=== PATIENT | female | born 1990 | race Caucasian/White ===

== ENCOUNTER 2017-05-26 21:03 | Emergency (ER) | payer MEDICAID, SELFPAY ==
[2017-05-26 21:04] VITALS: BP 151/88; PULSE 106; RESP 20; TEMP 36.6; O2SAT 97; BMI 37.7
--- NOTE | 2017-05-26 21:53 | ED.DCSUM_ITS ---
- ER Visit Summary Date of Service: 05/26/17 Chief Complaint: Vaginal bleeding History of Present Illness: The patient is a 26 F at approximately 4 weeks. Blood type B+. Presents with vaginal spotting that started tonight. No urinary symptoms. No abdominal pain. No back pain. No fevers. Physical Examination: Blood pressure 151/88. Heart rate 106. Afebrile. Nontoxic and in no acute distress. Abdomen soft and nontender. Test Results: We will check a pelvic exam, urinalysis, and hCG quant. Emergency Department Course and Treatment: Quant was 2. Urinalysis showed signs of likely contamination especially given her lack of symptoms. Will not treat at this time. Pelvic exam was not done as the patient was not and did not have discharge, pain, or any other concerning symptoms. Patient will follow up with her HAND DEVELOPER for any related issues. Return for any new or worsening problems. Treatment Plan: As above Disposition: Discharged Impression: 1. Vaginal bleeding This note was generated with [employer] dictation software. It may contain incorrect words, spelling, and punctuation that were not noted in review of the chart prior to signing ED Disposition - Plan for ED Patient: Chief Complaint: Vag Bld, Preg Referrals: Genesis Macedo MD [Primary Care Provider] -
[2017-05-26 22:26] LABS: Mucous, Urine 0 SEEN /hpf (<or=2+)
[2017-05-26 22:29] LABS: hCG Titer Quant., Serum 2 mIU/mL (<9 non-preg)
[2017-05-26 22:31] LABS: Color, Urine Red (Yellow); Glucose, Dipstick Normal (Normal); Ketone-Dipstick Negative (Negative); Leukocyte Esterase-Dipstick 500 /ul (Negative); Nitrite-Dipstick Negative (Negative); Occult Blood-Urine 250 /ul (Negative); Protein-Dipstick 100 mg/dl (Negative); Urine Bilirubin Dipstick Negative (Negative); Urine Clarity Sl. Cloudy (Clear); Urine Urobilinogen Normal (Normal)
[2017-05-26 22:38] LABS: Red Blood Cells-Urine > 100 SEEN /hpf (0-5); White Blood Cells 50-100 SEEN /hpf (0-5)
[2017-05-26 22:39] LABS: Bacteria 2+ /hpf (None Seen); Squamous Epithelial Cells - UA 10-25 SEEN /hpf (5-10)
--- NOTE | 2017-05-26 22:46 | ED.DEP ---
ED Disposition - Plan for ED Patient: Chief Complaint: Vag Bld, Preg Instructions: ED Bleed Irregular Vaginal Referrals: Genesis Macedo MD [Primary Care Provider] -
[2017-05-26 22:54] VITALS: BP 145/80; PULSE 87; RESP 14; O2SAT 98
--- NOTE | 2017-05-26 22:54 | ED.RN ---
pt given written and verbal discharge instructions by this rn. pt verbalizes understanding. pt tearful. this rn offers pt emotional support and tissues. pt iv d/c and covered with 2x2 gauze dressing and paper tap. pt ambulatory home with .
== END 2017-05-26 22:56 | disposition home or self-care (01) ==
PROVIDERS: Emergency Provider Emergency Medicine; Family Provider Family Medicine; PCP Family Medicine
DX: O46.91 Antepartum hemorrhage, unspecified, first trimester (principal); R19.7 Diarrhea, unspecified; Z3A.01 Less than 8 weeks gestation of pregnancy
CPT/HCPCS: 81001; 84702; 99283; A4216

== ENCOUNTER 2019-01-01 07:00 | Inpatient (IN) | payer MEDICAID, SELFPAY ==
[2019-01-01] VITALS (15 sets, daily range): BP systolic 101–129; BP diastolic 39–66; PULSE 82–107; RESP 15–18; TEMP 36.1–36.5; O2SAT 91–99; BMI 43.6
[2019-01-01] MEDS: Lactated Ringers 1,000 ML 200 ML IV (08:00)
--- NOTE | 2019-01-01 08:11 | PCM.HP.OB ---
History Date of Admission: 01/01/19 Final SALVADOR: 01/07/19 Gestational age: 39 Weeks and 1 Days History of this : This is a 28 year-old, @ 39.1 weeks- here for elective IOL- Maternal obesity, h/o macrosomia Allergies amoxicillin Allergy (Verified 01/01/19 07:50) Hives azithromycin [From Zithromax] Allergy (Verified 01/01/19 07:50) Rash latex Allergy (Verified 01/01/19 07:50) Hives nitrous oxide Allergy (Verified 01/01/19 07:50) Shortness of breath Intensifies pain Penicillins Allergy (Verified 01/01/19 07:50) Unknown Home Medications: Home Medications Sertraline HCl [Zoloft] 50 mg PO DAILY 05/26/17 Famotidine [Pepcid] 20 mg PO BID 01/01/19 Pnv No.95/Ferrous Fum/Folic AC [ Caplet] 1 ea PO DAILY 01/01/19 Smoking Status: Never smoker Alcohol: None Number of Fetus(es): 1 NST - FHR Rate Baby A Baseline: 150 Variability:: Moderate Accelerations:: 15 x 15 Decelerations:: None NST Reactive:: Yes FHR Category:: Category I Uterine Activity:: irregular History Past Pregnancies: Past Pregnancies Delivery Date Name GA/ Weeks Outcome Route Wt Sex Labor Length Anesthesia Delivery Location Provider FOB Labs: GBS negative, A+ Expected Delivery Method: Spontaneous Vaginal Review of Systems Constitutional: Denies: Anorexia Cardiovascular: Denies: Chest Pain Gastrointestinal: Denies: Abdominal Pain Physical Exam General: Alert, Oriented x3 Abdomen: Soft, Non Tender, Gravid Neurological: Cranial nerves II-XII grossly intact THERAPY SITE COORDINATOR: Normal external genitalia Estimated gestational size: Appropriate for gestational size Presentation: Cephalic Cervix Dilation (cm): 4 Station: -2 Effacement (%): 80 Assessment/Plan This is a 28 year-old, @ 39.1 wks, elective IOL - Maternal obesity and h/o Macrosomic infant 1) admit to L&D 2) Monitor FHR/TOCO 3) Anticipate 4) Epidural if requested for pain
[2019-01-01] MEDS: Oxytocin 30 units/NS 500 ml 30 UNITS/500 ML IV.SOLN IV (08:13)
[2019-01-01 08:32] LABS: Absolute Lymphocyte Count 1.78 X10^3/uL (0.83-4.51); Absolute Neutrophil Count 8.5 X10^3/uL (2.0-7.7); Basophil# 0.03 X10^3/uL; Basophil% 0.3 % (0-1); Eosinophil# 0.06 X10^3/uL; Eosinophils% 0.5 % (0-5); Hematocrit 37.8 % (37-47); Lymphocyte # 1.78 X10^3/ul (4.0); Lymphocyte % 16.1 % (19-41); Mean Corp Hgb Conc 31.7 g/dL (32-36); Mean Corpuscular Hgb 28.3 pg (27.0-32.0); Mean Corpuscular Volume 89.2 fL (81-99); Mean Platelet Vol. 9.4 fl (6.2-12.0); Monocyte# 0.66 X10^3/uL; NRBC Flagged by Analyzer 0 % (0-5); Neutrophil # 8.45 X10^3/uL (2.7-7.7); Neutrophil % 76.6 % (47-70); Platelet Count 201 K/mm3 (150-450); RBC Distribution Width CV 16.5 % (11.6-14.6); RBC Distribution Width SD 53.3 fl (35.1-43.9); Red Blood Count 4.24 M/mm3 (4.2-5.4)
[2019-01-01] MEDS: Lactated Ringers 500 ML 999 ML IV ×2 (08:50→10:32)
[2019-01-01] MEDS: fentaNYL-bupivacaine (epidural) 100 ML BAG EPIDURAL (11:21)
[2019-01-01] MEDS: Oxytocin 30 units/NS 500 ml 30 UNITS/500 ML IV.SOLN 334 UNITS IV (12:58)
--- NOTE | 2019-01-01 14:25 | PCM.OPRPT ---
Vaginal Delivery Maternal Presentation: Elective Induction Method of Induction: Pitocin, Amniotomy Amniotic Membrane Rupture Type: Artificial Amniotic Fluid Description: Clear Final SALVADOR: 01/07/19 Final SALVADOR Source: LMP Gestational age: 39 Weeks and 1 Days Date of Procedure: 01/01/19 Pre-Operative Diagnosis: term gestation, elective IOL Post-Operative Diagnosis: live female infant, 4th degre vaginal laceration, macrosomic infant Surgery/ Procedure Performed: Spontaneous Vaginal Delivery Type of Anesthesia: Epidural, - - spinal for repair of 4th degree laceration. Description of Procedure: Pt progressed from 4 cm to complete with strong urge to push as the epidural was not working well. head delivered loose nuchal appreciated it was reduced prior to delivery. With gentle downward traction and patient with good maternal pushing efforts delivered a live female infant. 3 of placenta the vagina was evaluated and fourth degree vaginal laceration was appreciated. Patient was counseled on the laceration and was prepped for the operating room for better utilization as well as spinal anesthesia as her epidural was inadequate at this time. Patient was then taken to the operating room and fourth degree vaginal laceration was repaired the rectal mucosa was repaired using a continuous 3-0 Vicryl suture. The sphincter was then identified laterally and it was repaired using a 3-0 Vicryl suture in a continuous fashion. The external anal sphincter was then identified grasped with 2 Allis clamps and the severed ends and it was repaired in a interrupted overlapping fashion using 5 interrupted sutures of 3-0 vicryl. These were then tied and good support was appreciated. The remaining vaginal laceration was repaired using #2 Vicryl suture in a running locking fashion. And the perineum was reapproximated using 3-0 Rapide in a running fashion. Rectal exam was performed good support was appreciated no sutures were palpated through the rectum. The procedure well she did receive Ancef 3 g in the operating room and will further dose in the morning as well as a CBC. Will remain on stool softeners and Toradol every 6 hours. Patient was given Duramorph in her spinal for pain control. Presentation: Vertex Placental Delivery Description: Spontaneous Placenta Disposition: [facility] Cord Vessel Description: 3 Vessels Nuchal Cord Compression: Without compression Cord Gases drawn per routine: ABG, VBG Cord Entanglement: Around neck x 1, loose Drain: Fan to straight drain Estimated Blood Loss: 400 Infant A gender: Female (1 minute): 8 (5 minute): 9 Episiotomy Description: None Laceration: Perineal Extension/lac, Vaginal Extension/lac, 2nd degree, 4th Degree Medications given after delivery: IV Pitocin Complications: None
[2019-01-01] MEDS: Nalbuphine 10 MG/ML Ampul 5 MG IV (15:43)
[2019-01-01] MEDS: Lactated Ringers 1,000 ML 50 ML IV (17:02)
[2019-01-01] MEDS: Senna/Docusate Sodium 1 Tablet PO (20:43)
[2019-01-01] MEDS: Ketorolac 30 MG/ML Syringe IV (20:43)
[2019-01-02] VITALS (12 sets, daily range): BP systolic 113–133; BP diastolic 52–67; PULSE 79–100; RESP 16–18; TEMP 36–36.7; O2SAT 95–100
[2019-01-02] MEDS: Ketorolac 30 MG/ML Syringe IV ×3 (02:37→14:35)
[2019-01-02] MEDS: 0.9% Saline Lock 10 ML Syringe IV ×4 (02:38→14:37)
[2019-01-02] MEDS: Nalbuphine 10 MG/ML Ampul 5 MG IV ×2 (02:50→11:09)
[2019-01-02 06:32] LABS: Hematocrit 31.9 % (37-47); Hemoglobin 10.2 g/dL (12.0-15.0); Mean Corpuscular Hgb 28.7 pg (27.0-32.0); Mean Corpuscular Volume 89.6 fL (81-99); Mean Platelet Vol. 9.5 fl (6.2-12.0); Platelet Count 190 K/mm3 (150-450); RBC Distribution Width CV 16.7 % (11.6-14.6); RBC Distribution Width SD 54.3 fl (35.1-43.9); Red Blood Count 3.56 M/mm3 (4.2-5.4); White Blood Count 11.7 K/mm3 (4.4-11.0)
--- NOTE | 2019-01-02 09:43 | PCM.PN.OB ---
Subjective: Seen at bedside, doing well. Patient reports good pain control at this timeThe catheter was just removed. Patient denies any significant rectal pain when moving in the bed. No bowel movement at this time. Bottlefeeding. . - Physical Exam Vitals/I&O's: Vital Signs Temp Pulse Resp BP Pulse Ox 97.0 F L 87 16 118/57 L 97 01/02/19 07:53 01/02/19 07:53 01/02/19 07:53 01/02/19 07:53 01/02/19 07:53 Oxygen Delivery Method Room Air Weight: 118.841 kg Body Mass Index (BMI) 43.6 Intake and Output for Last 24 Hours 12/31/18 01/01/19 01/02/19 23:59 23:59 23:59 Intake Total 2372.87 / 2372.87 115 / 115 Output Total 450 / 450 575 / 575 Balance 1922.87 / 1922.87 -460 / -460 General: Alert, Oriented x3 Abdomen: Soft, Non Tender Neurological: Cranial nerves II-XII grossly intact Laboratory Results 01/01/19 08:00: Blood Type A POSITIVE, Antibody Screen NEGATIVE 01/02/19 06:15: WBC 11.7 H, RBC 3.56 L, Hgb 10.2 L, Hct 31.9 L, MCV 89.6, MCH 28.7, MCHC 32.0, RDW Std Deviation 54.3 H, RDW Coeff of Silvia 16.7 H, Plt Count 190, MPV 9.5 Current Medications Acetaminophen (Tylenol) 1,000 mg PO Q8H PRN PRN PRN Reason: Pain Score 1-3/10 Bisacodyl (Dulcolax) 10 mg RECTAL UD PRN PRN Reason: If no BM Dibucaine (Dibucaine) 1 applic TOPICAL TID PRN PRN; Protocol PRN Reason: Discomfort Diphenhydramine HCl (Benadryl) 25 mg PO Q6H PRN PRN PRN Reason: ITCHING Stop: 01/02/19 15:27 Hydrocortisone (Hytone) 1 applic TOPICAL TID PRN PRN; Protocol PRN Reason: Discomfort Ibuprofen (Motrin) 600 mg PO Q6H PRN PRN PRN Reason: Pain Score 1-3/10 Ketorolac Tromethamine (Toradol) 30 mg IV Q6H JARON Stop: 01/06/19 18:01 Last Admin: 01/02/19 08:44 Dose: 30 mg Documented by: Methylergonovine Maleate (Methergine) 0.2 mg IM X1 PRN PRN Reason: Excess bleeding/uterine atony Nalbuphine HCl (Nubain) 5 mg IV Q3H PRN PRN PRN Reason: ITCHING Stop: 01/02/19 15:27 Last Admin: 01/02/19 02:50 Dose: 5 mg Documented by: Ondansetron HCl (Zofran) 4 mg IV Q4H PRN PRN PRN Reason: Nausea Ondansetron HCl (Zofran Odt) 4 mg PO Q4H PRN PRN PRN Reason: ITCHING Stop: 01/02/19 15:27 Oxycodone HCl (Oxyir) 5 - 10 mg PO Q4H PRN PRN PRN Reason: Pain Score 4-10/10 Senna/Docusate Sodium (Senokot-S, Mary-Colace) 1 - 2 tablet PO DAILY PRN PRN PRN Reason: Constipation Last Admin: 01/01/19 20:43 Dose: 2 tablet Documented by: Sertraline HCl (Zoloft) 50 mg PO DAILY JARON Simethicone (Mylicon) 80 mg PO PCHS PRN PRN Reason: Indigestion/Stomach pain Sodium Chloride () 5 - 15 ml IV UD PRN PRN Reason: SALINE FLUSH Last Admin: 01/02/19 08:52 Dose: 10 ml Documented by: Medical Necessity - Tobacco Use Smoking Status: Never smoker Assessment/Plan PPD#1, repair of 4th degree vaginal laceration 1) stool softeners 2) ambulation 3) pain mgmt
[2019-01-02] MEDS: Sertraline 50 MG Tablet PO (09:53)
--- NOTE | 2019-01-02 14:39 | NURSING ---
supervised student with IV toradol admin at 0830 and 1430
[2019-01-02] MEDS: Ibuprofen 600 MG Tablet PO (17:53)
[2019-01-02] MEDS: Senna/Docusate Sodium 1 Tablet PO (21:15)
[2019-01-02] MEDS: Acetaminophen 500 MG Tablet 1000 MG PO (21:15)
[2019-01-03] MEDS: Ibuprofen 600 MG Tablet PO ×2 (01:36→11:34)
[2019-01-03 01:37] VITALS: BP 120/60; PULSE 72; RESP 18; TEMP 36.5
[2019-01-03] MEDS: Acetaminophen 500 MG Tablet 1000 MG PO (06:37)
--- NOTE | 2019-01-03 07:18 | DCINST_ITS ---
Discharge Diet: No Restrictions Discharge Activity: Return to Normal Activity, May not drive while taking narcotic pain medications., May Shower May resume sexual activity in: 4-6 weeks Additional Activity Instructions:: Nothing in the vagina for 4-6 weeks. You may return to work/school in 6 weeks. Call your doctor if your incision/area has: Continuous Slow Oozing, Sudden Increased Bleeding, Increased Pain/ Swelling, Increased Redness, Foul Smelling Discharge Call your doctor if you observe: Fever of 101 or Higher Additional Instructions: If you experience any of the following, contact your healthcare provider. * Bleeding that soaks a pad every hour for 2 hours * Fever 100.4 or higher * Unrelieved incision or abdominal pain * Swelling, redness, discharge or bleeding from your incision or episiotomy site * Your incision begins to separate * Problems urinating (including inability to urinate or burning while urinating). * Visual changes * Severe headache * Flu-like symptoms * Pain or redness in one of both of your breasts * Pain, warmth, tenderness or swelling in your legs, especially the calf area * Frequent nausea and vomiting * Symptoms of depression or anxiety If you experience any of the following, call 911 or go to the nearest Emergency Room. * Chest pain * Problems breathing * Seizure activity * Partial or complete paralysis of a body part, slurred speech, weakness or drooping of the face, or a sudden inability to walk or hold your balance Allergies/Adverse Reactions: Allergies amoxicillin Allergy (Verified 01/01/19 07:50) Hives azithromycin [From Zithromax] Allergy (Verified 01/01/19 07:50) Rash latex Allergy (Verified 01/01/19 07:50) Hives nitrous oxide Allergy (Verified 01/01/19 07:50) Shortness of breath Intensifies pain Penicillins Allergy (Verified 01/01/19 07:50) Unknown Medications to take at Discharge Sertraline HCl [Zoloft] 50 mg PO DAILY 05/26/17 Famotidine [Pepcid] 20 mg PO BID 01/01/19 Pnv No.95/Ferrous Fum/Folic AC [ Caplet] 1 ea PO DAILY 01/01/19 When: Call to make an appointment with your doctor in 6 weeks. If you had elevated Blood Pressure or 4th degree laceration you will need to be seen in 1 weeks. Primary Care Physician: Genesis Macedo MD [Primary Care Provider] - Test Results: Test results from this visit will be discussed in further detail at your follow- up appointment, if applicable.
--- NOTE | 2019-01-03 07:18 | PCM.PN.OB ---
Subjective: pt seen at bedside, doing well. pt reports good pain control. lochia mild. Bottle feeding. pt rates perineal pain 3/10. No BM yet but is voiding. - Physical Exam Vitals/I&O's: Vital Signs Temp Pulse Resp BP Pulse Ox 97.7 F L 72 18 120/60 95 01/03/19 01:37 01/03/19 01:37 01/03/19 01:37 01/03/19 01:37 01/02/19 20:58 Oxygen Delivery Method Room Air Weight: 118.841 kg Body Mass Index (BMI) 43.6 Intake and Output for Last 24 Hours 01/01/19 01/02/19 01/03/19 23:59 23:59 23:59 Intake Total 2372.87 / 2372.87 115 / 115 Output Total 450 / 450 750 / 750 Balance 1922.87 / 1922.87 -635 / -635 General: Alert, Oriented x3 Abdomen: Soft, Non Tender Neurological: Cranial nerves II-XII grossly intact Current Medications Acetaminophen (Tylenol) 1,000 mg PO Q8H PRN PRN PRN Reason: Pain Score 1-3/10 Last Admin: 01/03/19 06:37 Dose: 1,000 mg Documented by: Bisacodyl (Dulcolax) 10 mg RECTAL UD PRN PRN Reason: If no BM Dibucaine (Dibucaine) 1 applic TOPICAL TID PRN PRN; Protocol PRN Reason: Discomfort Hydrocortisone (Hytone) 1 applic TOPICAL TID PRN PRN; Protocol PRN Reason: Discomfort Ibuprofen (Motrin) 600 mg PO Q6H PRN PRN PRN Reason: Pain Score 1-3/10 Last Admin: 01/03/19 01:36 Dose: 600 mg Documented by: Methylergonovine Maleate (Methergine) 0.2 mg IM X1 PRN PRN Reason: Excess bleeding/uterine atony Ondansetron HCl (Zofran) 4 mg IV Q4H PRN PRN PRN Reason: Nausea Oxycodone HCl (Oxyir) 5 - 10 mg PO Q4H PRN PRN PRN Reason: Pain Score 4-10/10 Senna/Docusate Sodium (Senokot-S, Mary-Colace) 1 - 2 tablet PO DAILY PRN PRN PRN Reason: Constipation Last Admin: 01/02/19 21:15 Dose: 1 tablet Documented by: Sertraline HCl (Zoloft) 50 mg PO DAILY JARON Last Admin: 01/02/19 09:53 Dose: 50 mg Documented by: Simethicone (Mylicon) 80 mg PO HS PRN PRN Reason: Indigestion/Stomach pain Sodium Chloride () 5 - 15 ml IV UD PRN PRN Reason: SALINE FLUSH Last Admin: 01/02/19 14:37 Dose: 10 ml Documented by: Medical Necessity - Tobacco Use Smoking Status: Never smoker Assessment/Plan PPD#1, doing well routine care pain mgmt Perineal clinic at [facility] reviewed- will arrange needs to be seen in office within one week dc home
--- NOTE | 2019-01-03 07:23 | DCINST_ITS ---
Discharge Diet: No Restrictions Discharge Activity: Return to Normal Activity, May not drive while taking narcotic pain medications., May Shower May resume sexual activity in: 4-6 weeks Additional Activity Instructions:: Nothing in the vagina for 4-6 weeks. You may return to work/school in 6 weeks. Call your doctor if your incision/area has: Continuous Slow Oozing, Sudden Increased Bleeding, Increased Pain/ Swelling, Increased Redness, Foul Smelling Discharge Call your doctor if you observe: Fever of 101 or Higher Additional Instructions: If you experience any of the following, contact your healthcare provider. * Bleeding that soaks a pad every hour for 2 hours * Fever 100.4 or higher * Unrelieved incision or abdominal pain * Swelling, redness, discharge or bleeding from your incision or episiotomy site * Your incision begins to separate * Problems urinating (including inability to urinate or burning while urinating). * Visual changes * Severe headache * Flu-like symptoms * Pain or redness in one of both of your breasts * Pain, warmth, tenderness or swelling in your legs, especially the calf area * Frequent nausea and vomiting * Symptoms of depression or anxiety If you experience any of the following, call 911 or go to the nearest Emergency Room. * Chest pain * Problems breathing * Seizure activity * Partial or complete paralysis of a body part, slurred speech, weakness or drooping of the face, or a sudden inability to walk or hold your balance Allergies/Adverse Reactions: Allergies amoxicillin Allergy (Verified 01/01/19 07:50) Hives azithromycin [From Zithromax] Allergy (Verified 01/01/19 07:50) Rash latex Allergy (Verified 01/01/19 07:50) Hives nitrous oxide Allergy (Verified 01/01/19 07:50) Shortness of breath Intensifies pain Penicillins Allergy (Verified 01/01/19 07:50) Unknown Medications to take at Discharge Sertraline HCl [Zoloft] 50 mg PO DAILY 05/26/17 Pnv No.95/Ferrous Fum/Folic AC [ Caplet] 1 ea PO DAILY 01/01/19 Ibuprofen [Motrin] 600 mg PO Q6H PRN PRN #60 tab 01/03/19 Oxycodone HCl/Acetaminophen [Percocet 5/325] 1 tablet PO Q6H PRN PRN 7 Days #20 tablet 01/03/19 Senna/Docusate Sodium [Senokot-S] 2 tab PO DAILY PRN PRN #60 tab 01/03/19 The following prescriptions were given: Ibuprofen [Motrin] 600 mg PO Q6H PRN PRN #60 tab PRN Reason: Pain Score 1-3/10 Transmission Status: Pending to [facility] Oxycodone HCl/Acetaminophen [Percocet 5/325] 1 tablet PO Q6H PRN PRN 7 Days #20 tablet PRN Reason: Pain Score 6-10/10 Transmission Status: Sent to [facility] Senna/Docusate Sodium [Senokot-S] 2 tab PO DAILY PRN PRN #60 tab PRN Reason: Constipation Transmission Status: Pending to [facility] Please Follow Up With: Mallory Mijares MD When: one week. Primary Care Physician: Genesis Macedo MD [Primary Care Provider] - Test Results: Test results from this visit will be discussed in further detail at your follow- up appointment, if applicable.
[2019-01-03 08:00] VITALS: BP 126/64; PULSE 79; RESP 20; TEMP 36.2
[2019-01-03] MEDS: Senna/Docusate Sodium 1 Tablet PO (11:33)
[2019-01-03] MEDS: Sertraline 50 MG Tablet PO (11:34)
--- NOTE | 2019-01-06 09:44 | CASEMGMT ---
Social Work Assessment (late entry for assessment occurring on 01.03.2019) Labor and Delivery Unit Date of Referral: 01.01.2019 Time of Referral: 1913 Referred By: Dr. Mijares Date of Intervention: 01.03.2019 Time of Intervention: 1140 Reason for Referral: maternal history of depression and anxiety History obtained from: medical records and mother of baby (MOB) Rikki Patel Household composition: MOB, father of baby (FOB), and older child live with MOB?s father. MOB reports moved in with her father a few months ago and things are going well. MOB denies any safety concerns in the home. Patient's parent/guardian status: MOB is age 29 and FOB is age 23, together since 2012 and in 2014. MOB denies any form of abuse in this relationship. MOB and FOB now have 2 children: Yasmine (born 01.01.2019) and Lg Patel (born 06.01.2016). Medical History: MOB is G2, P1 to 2 after delivery of infant Yasmine. MOB with care starting early at 6 weeks and regular thereafter. Yasmine delivered at 9 pounds 6 ounces, Apgars 8 and 9 at 1 and 5 minutes of life. MOB did have a 4th degree tear during this delivery. Educational Status: MOB has an associate?s degree in a business-related field. MOB denies any issues with reading, writing, or learning comprehension issues. Financial Status: FOB works pediatric audiologist in sales. MOB does not currently work outside of the home. Infant Supplies: MOB reports to have needed supplies for baby including safe sleep space and a car seat. MOB has bottles and can get formula if needed. Childcare/Caregiver(s): MOB is the primary caregiver to baby. Help from FOB and MOB?s father. Transportation: No issues. Programs/Agencies Involved: MOB has Medicaid through [facility] and has WIC. MOB declines referrals to Help [employer] Grow or Early Head Start. Children Services/Legal Issues: Denies legal issues. No reports of history of children services involvement. Behavioral Health Issues: Mental Health History: MOB reports history of depression and then depression after the of Lg which MOB reports was diagnoses at 2 months . MOB denies that the depression ever got in the way of taking care of Lg, but MOB was feeling more emotional. MOB admits that anxiety was also present any maybe more prominent than the depression. MOB denies any history of thoughts of suicide, planning, intent, or attempts. MOB reports did get on Zoloft after Lg was born and has stayed on this medicine during with Yasmine. Substance Use History: MOB denies any history of substance use or abuse issues. No tobacco use. Family History: Record indicates MOB?s father with history of alcohol use issues. Drug Screens: maternal drug screen negative on 05.16.2018. Family/Social Stressors: Baby with macrosomia and induction for this reason. MOB reports her first baby was large so MBO reports was trying to advocate for self this to have an earlier delivery and avoid having such a large baby. MOB reports was not able to be induced as early as would have liked. MO reports she tore to a 4th degree tear and now must follow up with a specialist to assure proper hearing. MOB reports the delivery was quick as well. MOB reports there has just been a lot to take in as in addition to MOB not feeling well and dealing with her delivery, the baby now has a sacral dimple that needs follow up and the baby did not pass her hearing screen. Support Systems: MOB reports FOB is very helpful and supportive, as well as MOB?s father, and then 2 girlfriends one of home has children and is (so a support in knowing what MOB has been going through as a and woman). Depression/Shaken Baby/Safe Sleeping: Educational material given on all topics. ASSESSMENT: MOB pleasant and cooperative with social work visit. MOB did cry when talking about her experience and all that has happened in a concentrated amount of time. Allowed MOB time to have her emotions, normalized feelings and responses to what has occurred, and gave encouragement for all that MOB is doing now. MOB reports to have a good support system, to have baby supplies, to feel a matute with this baby, and a plan to stay on Zoloft in the period. Talked with MOB that if depressive or anxiety symptoms change for MOB or worsen, that would be beneficial to review with doctor for evaluation of medication adjustment or referral to counseling. MOB reports not real keen on the idea of counseling but would talk to the doctor about medications. MOB denies any needs for home going. Encouraged MOB to use her support system, get rest, and self-care as able. MOB accepting of resource packet on mood and anxiety disorder, as well as a resource list for [facility]. No concerns voiced by staff regarding mother child interactions or bonding. PLAN: MOB and baby to home. Support network in place and resources given in case of future need. No other services requested or indicated. -LUZ Brower, MACHINE TOOL OPERATOR
== END 2019-01-03 12:25 | disposition home or self-care (01) | DRG 542 ==
PROVIDERS: Admitting Provider Obstetrics & Gynecology; Family Provider Family Medicine; PCP Family Medicine; Referring Provider Obstetrics & Gynecology; Visit Provider Obstetrics & Gynecology
DX: O99.214 Obesity complicating childbirth (principal); O36.63X0 Maternal care for excessive fetal growth, third trimester, not applicable or unspecified; O69.81X0 Labor and delivery complicated by cord around neck, without compression, not applicable or unspecified; O70.3 Fourth degree perineal laceration during delivery; Z88.0 Allergy status to penicillin; Z88.1 Allergy status to other antibiotic agents; Z91.040 Latex allergy status; Z79.899 Other long term (current) drug therapy; Z3A.39 39 weeks gestation of pregnancy; Z37.0 Single live birth
CPT/HCPCS: 59025; 59050; 85025; 85027; 86850; 86900; 86901; 99218; J7120; A4216; G0378

== ENCOUNTER → 2021-08-05 | Outpatient (CLI) | payer MEDICAID, SELFPAY ==
[2021-08-05 17:51] LABS: Thyroid Stim Hormone (TSH) 1.12 uIU/mL (0.358-3.74)
== END | disposition home or self-care (01) ==
LOC: LAB 15:33
PROVIDERS: PCP Family Medicine; Referring Provider Obstetrics & Gynecology; Visit Provider Obstetrics & Gynecology
DX: F41.9 Anxiety disorder, unspecified (principal)
CPT/HCPCS: 36415; 84443

== ENCOUNTER → 2022-10-19 | Outpatient (CLI) | payer MEDICAID, SELFPAY ==
--- NOTE | 2022-10-19 12:58 | US_ITS ---
INDICATION: abnormal uterine bleeding. EXAMINATION: Ultrasound US Pelvis Non OB Complete With Transvaginal Imaging TECHNIQUE: Transabdominal and transvaginal pelvic ultrasound was performed. Grayscale and color flow Doppler evaluation of the adnexa. COMPARISON: No relevant prior comparison study available FINDINGS: UTERUS: Anteverted. The uterus measures 8.2 x 4 x 3.6 cm. There is no uterine mass. Somewhat prominent cervical tissue with increased Doppler vascularity. No defined mass identified. This could be an infectious process, or be physiologic. Nabothian cysts are present. The endometrial stripe measures 0.2 cm in AP diameter which is within normal limits. RIGHT OVARY: 2.3 x 1.2 x 0.7 cm. Non-enlarged, normal echogenicity. Doppler flow seen to the ovary. LEFT OVARY: Nonvisualized, likely secondary to significant bowel gas. FREE FLUID: None. US/Pelvic w/ Transvaginal IMPRESSION: There is no focal mass identified. There is mild prominence of the cervix with increased Doppler vascularity, nonspecific. While this may be physiologic, infectious process possible. If there is continued concern, pelvic MRI could be performed nonemergently. Electronically Signed: Adi Mtz MD at 22:36 EDT Reading Location ID and State: [facility] / [place] Tel , Service support ,
== END | disposition home or self-care (01) ==
LOC: US 12:56
PROVIDERS: PCP Family Medicine; Referring Provider Obstetrics & Gynecology; Visit Provider Obstetrics & Gynecology
DX: N93.9 Abnormal uterine and vaginal bleeding, unspecified (principal)
CPT/HCPCS: 76830; 76856

== ENCOUNTER → 2023-10-03 | Outpatient (CLI) | payer SELFPAY ==
[2023-10-09 15:09] LABS: HPV APTIMA, High Risk Negative (Negative)
== END | disposition home or self-care (01) ==
PROVIDERS: PCP Family Medicine; Referring Provider Obstetrics & Gynecology; Visit Provider Obstetrics & Gynecology
DX: Z12.4 Encounter for screening for malignant neoplasm of cervix (principal)
CPT/HCPCS: 87624; 88175; G0145

== ENCOUNTER → 2025-01-16 | Outpatient (CLI) | payer MEDICAID, SELFPAY ==
--- NOTE | 2025-01-16 09:53 | US_ITS ---
PROCEDURE: OB LIMITED WITH BIOMETRICS 01/16/2025 REASON FOR EXAM: DATING TECHNIQUE: Procedure Code: [id number] Modality: US Procedure: OB LIMITED WITH BIOMETRICS COMPARISON: None FINDINGS LMP: September 20, 2024. Number: 1 Position: Breech Placental Position: Anterior and not low-lying Placental Abnormalities: No evidence of previa. DIMENSIONS: Biparietal Diameter: 3.8 cm: 17 weeks and 3 days: 77 percentile/ Head Circumference: 13.9 cm: 17 weeks and 2 days: 61 percentile/ Abdominal Circumference: 12.8 cm: 18 weeks and 2 days: 91st percentile/ Femur Length: 2.2 cm: 16 weeks and 4 days: 33rd percentile/ ESTIMATED WEIGHT: 198 g plus/-30 g ESTIMATED WEIGHT PERCENTILE (24+ weeks): 83 ESTIMATED GESTATIONAL AGE: Baseline: 16 weeks and 6 days By Ultrasound: 17 weeks and 3 days ESTIMATED DATE OF DELIVERY: Baseline: June 27, 2025 By Ultrasound: June 23, 2025 BIOPHYSICAL ASSESSMENT: Amniotic Fluid Volume: 4.4 cm Amniotic Fluid Index: Within normal limits. (8-24 cm normal range) Cardiac Motion: 155 beats per minute (average) Trunk and Limb Motion: Present. MATERNAL ANATOMY: Adnexa: Neither maternal ovary is successfully identified. Cervical Length (if measured): 3.9 cm US/OB Limited With Biometrics IMPRESSION: Single live intrauterine gestation with a mean gestational age of 17 weeks and 3 days. Reading Location: [place] [id number]
== END | disposition home or self-care (01) ==
LOC: US 09:49
PROVIDERS: PCP Family Medicine; Referring Provider Obstetrics & Gynecology; Visit Provider Obstetrics & Gynecology
DX: O24.410 Gestational diabetes mellitus in pregnancy, diet controlled (principal); O09.93 Supervision of high risk pregnancy, unspecified, third trimester; Z3A.37 37 weeks gestation of pregnancy
CPT/HCPCS: 76816

== ENCOUNTER → 2025-01-19 | Outpatient (CLI) | payer MEDICAID, SELFPAY ==
[2025-01-19 12:36] LABS: Hematocrit 37.7 % (37-47); Hemoglobin 12.1 g/dL (12.0-15.0); Immature Granulocytes Count 0.040 X10^3/uL (0.0-0.0); Mean Corp Hgb Conc 32.1 g/dL (32-36); Mean Corpuscular Volume 87.3 fL (81-99); Mean Platelet Vol. 9.5 fl (6.2-12.0); NRBC Flagged by Analyzer 0 % (0-5); Platelet Count 302 K/mm3 (150-450); RBC Distribution Width CV 15.1 % (11.6-14.6); RBC Distribution Width SD 47.9 fl (35.1-43.9); Red Blood Count 4.32 M/mm3 (4.2-5.4); White Blood Count 10.1 K/mm3 (4.4-11.0)
[2025-01-19 13:47] LABS: HIV Nonreactive (Nonreactive); Hepatitis B Surface Antigen Nonreactive (Nonreactive); Hepatitis C Antibody Nonreactive (Nonreactive); Syphilis Antibodies Nonreactive (Nonreactive)
[2025-01-20 20:08] LABS: Chlamydia By Nucleic Acid AMP Negative (Negative); Gonococcus By Nucleic Acid AMP Negative (Negative)
== END | disposition home or self-care (01) ==
LOC: BWCLAB 09:29
PROVIDERS: PCP Family Medicine; Visit Provider Obstetrics & Gynecology
DX: O09.90 Supervision of high risk pregnancy, unspecified, unspecified trimester (principal)
CPT/HCPCS: 36415; 83036; 85025; 86703; 86762; 86780; 86803; 86850; 86900; 86901; 87086; 87088; 87340; 87491; 87591

== ENCOUNTER → 2025-02-09 | Outpatient (CLI) | payer MEDICAID, SELFPAY ==
--- NOTE | 2025-02-09 15:36 | US_ITS ---
PROCEDURE: OB ANATOMY W/ TRANSVAGINAL 02/09/2025 REASON FOR EXAM: ANATOMY SCAN TECHNIQUE: Procedure Code: [id number] Modality: US Procedure: OB ANATOMY W/ TRANSVAGINAL COMPARISON: 01/16/2025 FINDINGS Number: 1 Position: Transverse Placental Position: Anterior Placental Abnormalities: No evidence of previa. DIMENSIONS: Biparietal Diameter: 4.9 cm/20 weeks 6 days Head Circumference: 18.6 cm/21 weeks 0 days Abdominal Circumference: 16.6 cm/21 weeks 4 days Femur Length: 3.4 cm/20 weeks 5 days ESTIMATED WEIGHT: 407 g, +/-61 ESTIMATED WEIGHT PERCENTILE (24+ weeks): 89th ESTIMATED GESTATIONAL AGE: By Ultrasound: 21 weeks 1 day ESTIMATED DATE OF DELIVERY: By Ultrasound: 06/21/2025 BIOPHYSICAL ASSESSMENT: Amniotic Fluid Volume: Subjectively normal with largest pocket measuring 6.8 cm Amniotic Fluid Index: (8-24 cm normal range) Cardiac Motion: 136 (average) Trunk and Limb Motion: Present. MATERNAL ANATOMY: Adnexa: Neither maternal ovary is successfully identified. Cervical Length (if measured): 6.6 cm ANATOMY: Spine: Sonographically normal Cranium: Sonographically normal Cerebellum: Sonographically normal measuring 2.3 mm Cisterna Magna: Sonographically normal measuring 7 mm Lateral Ventricles: Sonographically normal measuring 7 mm Choroid Plexus: Sonographically normal Nuchal Fold: Sonographically normal Face/nose/lips in profile: Sonographically normal Heart: Normal four-chamber cardiac view noted Ventricular Outflow Tracts: Sonographically normal Stomach: Sonographically normal Kidneys: Sonographically normal right renal pelvis measures 8 mm Bladder: Sonographically normal Umbilical Cord: Three-vessel umbilical cord seen entering the midline of the abdomen Extremities: Sonographically normal Fetus is male US/OB Anatomy w/ Transvaginal IMPRESSION: Single live intrauterine at 21 weeks 1 day with heart rate of 136 ned ts per minute. [place] of 06/21/2025. No suspicious sonographic findings. Reading Location: [id number]
== END | disposition home or self-care (01) ==
LOC: US 15:32
PROVIDERS: PCP Family Medicine; Referring Provider Obstetrics & Gynecology; Visit Provider Obstetrics & Gynecology
DX: O09.90 Supervision of high risk pregnancy, unspecified, unspecified trimester (principal)
CPT/HCPCS: 76805; 76817